=== PATIENT | male | born 1950 | race Caucasian/White ===

== ENCOUNTER 2016-10-04 08:01 | Day surgery (SDC) | payer MEDICARE, OTHER ==
[~2016-10-04 08:01] MED LIST: Sodium Chloride 0.9% 1,000 ML IV SCH; Sodium Chloride 0.9% 5 ML Syringe FLUSH PRN
[2016-10-04] MEDS ORDERED: Midazolam 1 MG/ML 2 ML SDV ONE (08:20)
[2016-10-04] MEDS ORDERED: Propofol 200 MG/20 ML SDV ONE (08:21)
[2016-10-04] MEDS ORDERED: fentaNYL 100 MCG/2 ML SDV ONE (08:21)
[2016-10-04] MEDS ORDERED: EPINEPHrine 1:10,000 1 MG/10 ML Syringe ONE ×2 (08:26→09:49)
[2016-10-04] MEDS ORDERED: fentaNYL 100 MCG/2 ML SDV IV ONE (09:30)
[2016-10-04] MEDS ORDERED: Midazolam 1 MG/ML 2 ML SDV IV ONE (09:30)
[2016-10-04] MEDS ORDERED: Propofol 200 MG/20 ML SDV IV ONE (09:30)
--- NOTE | 2016-10-04 10:02 | PCM.OPNOTE ---
- General Post-Op/Procedure Note Date of Surgery/Procedure: 10/04/16 Operative Procedure(s): upper GI endoscopy and biopsies. Pre Op Diagnosis: Persistent epigastric discomfort. Occasional hematemesis. Recent discovery of brother with esophageal carcinoma. Another brother of upper gastrointestinal tract cancer. Anesthesia Technique: MAC Primary Surgeon: Venice Bazzi Complications: None Condition: Good Free Text/Narrative:: INFORMED CONSENT: Patient is here today for elective upper GI endoscopy. All aspects of this procedure have been discussed with the patient. All possible complications also, including possibility of perforation, infection, pain, bleeding, numbness of the throat, swallowing difficulty and unknown complications. In the event of perforation the patient may need surgical exploration to repair the defect. The patient understands fully well. Patient did not have any further questions for me at the end of my interview. The patient wishes for me to proceed. INSTRUMENT USED: Video gastroscope ANESTHESIA: [MAC] ASA CLASSIFICATION: [2] PROCEDURE PERFORMED: [ upper gastrointestinal endoscopy with biopsies] PHARYNX: Normal. ESOPHAGUS: Normal. Proximal: Normal. Middle: Normal. Lower: Normal. GE Junction: Normal. STOMACH: Normal. Cardia: Normal. Fundus: Normal. Lesser Curvature: Normal. Greater Curvature: Moderate antral gastritis was observed. Biopsies were taken. Antrum: Normal. Pylorus: Normal. DUODENUM: Normal. First Part: Normal. Second Part: Normal. Third Part: Normal. RETROFLEXION: Normal. BIOPSY: None. TOLERANCE: Excellent. COMPLICATIONS: None. Final diagnosis: moderate antral gastritis of the stomach.
[2016-10-04 11:33] VITALS: BP 139/78
== END 2016-10-04 12:20 | disposition home or self-care (01) ==
LOC: KA.SDS 08:01
PROVIDERS: ATTEND Family Medicine
PROC: 0DB68ZX Excision of Stomach, Via Natural or Artificial Opening Endoscopic, Diagnostic (ICD-10-PCS; principal; 2016-10-04)
DX: K21.9 Gastro-esophageal reflux disease without esophagitis (principal); K29.00 Acute gastritis without bleeding; K29.50 Unspecified chronic gastritis without bleeding; Z80.0 Family history of malignant neoplasm of digestive organs; E11.65 Type 2 diabetes mellitus with hyperglycemia; I10 Essential (primary) hypertension; E78.5 Hyperlipidemia, unspecified; Z79.899 Other long term (current) drug therapy; Z79.82 Long term (current) use of aspirin
CPT/HCPCS: 00740; 43239; 82962; 88305; 88342; J0171; J2250; J2704; J3010; J7030